=== PATIENT | male | born 1955 | race Caucasian/White ===

== ENCOUNTER → 2017-02-23 | Outpatient (CLI) | payer OTHER ==
--- NOTE | 2017-02-23 18:15 | Diagnostic Imaging Report ---
PROCEDURE: CT chest without contrast. TECHNIQUE: Multiple contiguous axial images were obtained through the chest without the use of intravenous contrast. INDICATION: Unexplained weight loss. FINDINGS: Noncontrasted CT. The lungs are well aerated. There are no infiltrates. No masses are demonstrated. No pneumothorax or pleural effusion. Aorta is atherosclerotic. The aortic root measures 3.9 cm. There is no pleural effusion or pericardial effusion. No mediastinal or hilar adenopathy of pathologic size. No bony lesions demonstrated. IMPRESSION: 1. No findings are seen on noncontrasted CT to suggest malignancy. 2. Mild ectasia of the aortic root measuring 3.9 cm. Dictated on workstation # [id number]
== END ==
LOC: RAD 13:16
PROVIDERS: ATTEND Family Medicine
DX: I77.810 Thoracic aortic ectasia (principal); R63.4 Abnormal weight loss; Z72.0 Tobacco use
CPT/HCPCS: 71250

== ENCOUNTER → 2020-04-24 | Outpatient (CLI) | payer OTHER ==
--- NOTE | 2020-04-24 11:54 | Diagnostic Imaging Report ---
INDICATION: Screening for osteoporosis, low serum calcium, hypothyroidism, history of smoking. FINDINGS: AP Spine L1-L4: [BMD (g/cm2): 0.851] [T-Score: -3.2] [Z-Score: -2.6] [BMD Previous: na] [BMD % Change: na] LT Hip Neck: [BMD (g/cm2): 0.865] [T-Score: -1.6] [Z-Score: -0.3] LT Hip Total: [BMD (g/cm2):0.955] [T-Score:-1.0] [Z-Score: -0.3] [BMD Previous: na] [BMD % Change: na] RT Hip Neck: [BMD (g/cm2):0.898] [T-Score:-1.3] [Z-Score:-0.1] RT Hip Total: [BMD (g/cm2):0.961] [T-score:-1.0] [Z-Score:-0.3] [BMD Previous:na] [BMD % Change:na] *Indicates significant change from prior examination based on 95% confidence level. World Health Organization criteria for BMD interpretation classify patients as Normal (T-score at or above -1.0), Osteopenic (T-score between -1.0 and -2.5) or Osteoporotic (T-score at or below -2.5). LIMITATIONS AND MODIFICATION: None. IMPRESSION: 1. Osteoporosis. 2. Baseline examination. 3. See below National Osteoporosis Foundation guidelines on when to potentially initiate pharmacologic therapy. Based on the National Osteoporosis Foundation Guidelines, pharmacologic treatment should be initiated in any of the following, unless clinical conditions suggest otherwise: * Any patient with prior fragility fracture of the hip or vertebrae. A spine fracture indicates 5X risk for subsequent spine fracture and 2X risk for subsequent hip fracture. * Osteoporosis (T-score <-2.5). * Postmenopausal women and men age 50 and older with low bone mass/osteopenia (T-score between -1.0 and -2.5) by DXA and 10-year major osteoporotic fracture greater than 20% or a 10-year probability of hip fracture greater than 3%. These fracture risks are supplied above in the FRAX score, if applicable. * Clinician judgement and/or patient preferences may indicate treatment for people with 10-year fracture probabilities above or below these levels. Dictated by: Dictated on workstation # [id number]
== END ==
LOC: RAD 11:11
PROVIDERS: ATTEND Family Medicine
DX: M81.0 Age-related osteoporosis without current pathological fracture (principal); R79.89 Other specified abnormal findings of blood chemistry; E03.9 Hypothyroidism, unspecified; Z87.891 Personal history of nicotine dependence
CPT/HCPCS: 77080

== ENCOUNTER → 2020-09-11 | Outpatient (CLI) | payer OTHER ==
[~2020-09-11] MED LIST: GADOBUTROL 10 MMOL/10 ML (GADAVIST) VIAL IV ONE
--- NOTE | 2020-09-11 12:09 | Diagnostic Imaging Report ---
PROCEDURE: MR imaging of the brain with and without contrast. TECHNIQUE: Multiplanar, multisequence MR imaging of the brain was performed with and without contrast. INDICATION: Brain fog. Tremors in the hands. COMPARISON: 08/27/2012. FINDINGS: No acute ischemia, mass, or hemorrhage. No abnormal enhancement. Small amount of scattered T2 hyperintense signal is seen in the periventricular and subcortical white matter. The ventricles, cortical sulci, and basilar cisterns are symmetric and unremarkable. The sellar and suprasellar regions have a normal appearance. The brainstem and posterior fossa are unremarkable. Mild mucosal thickening is seen in the bilateral ethmoid and frontal sinuses. The mastoid air cells demonstrate normal signal characteristics. The globes and orbits are symmetric and unremarkable. The scalp and calvarium have a normal appearance. IMPRESSION: 1. No acute ischemia, mass, or hemorrhage. No abnormal enhancement. 2. Small amount of focal T2 hyperintense signal in the periventricular and subcortical white matter, likely representing sequelae of migraine and/or chronic microvascular disease. 3. Mild mucosal thickening in the bilateral ethmoid and frontal sinuses. Dictated by: Dictated on workstation # [id number]
== END ==
LOC: RAD 10:15
PROVIDERS: ATTEND Family Medicine
DX: G25.2 Other specified forms of tremor (principal); J34.89 Other specified disorders of nose and nasal sinuses; R68.89 Other general symptoms and signs; R42 Dizziness and giddiness; R53.83 Other fatigue
CPT/HCPCS: 70553